=== PATIENT | male | born 1960 | race Caucasian/White ===

== ENCOUNTER 2016-05-06 11:38 | Inpatient (IN) | payer OTHER ==
[~2016-05-06] VITALS: Ht 167.6 cm; Wt 107.0 kg
--- NOTE | 2016-05-06 11:38 | NUR ---
PT TO ROOM 15 VIA STRETCHER BY EMS. OFFICER AT BEDSIDE.
--- NOTE | 2016-05-06 11:59 | NUR ---
PT NOW WITH BLOOD DRAWN FROM IV SITE, AWAITS EDP EVAL. CHEST PAIN IS MINIMAL.
[2016-05-06 12:33] LABS: HEMATOCRIT 42.4 % (39.0-50.0); HEMOGLOBIN 14.7 g/dl (14.0-18.0); IMMATURE GRANULOCYTES 0.7 % (0.0-1.0); MEAN CELL VOLUME 90.2 fL CALC (80.0-100.0); MEAN CORPUSCULAR HGB 31.3 pG CALC (26.0-32.0); MEAN CORPUSCULAR HGB CONC 34.7 g/L CALC (32.0-36.0); NEUT# 11.89 thou/uL (1.82-7.42); RED BLOOD COUNT 4.7 mill/uL (4.70-6.10); RED CELL DISTRI WIDTH 13.2 % (11.5-15.5)
[2016-05-06 12:44] LABS: ALBUMIN 4.2 g/dL (3.2-5.0); ALKALINE PHOSPHATASE 82 u/l (38-126); ANION GAP 18 (6-22 (CALC)); BILIRUBIN, TOTAL 3.1 mg/dL (0.0-1.4); BUN 10 mg/dL (9-20); BUN/CREATININE RATIO 9 (12-20 (CALC)); CALCIUM 8.7 mg/dL (8.4-10.2); CARBON DIOXIDE 21 mmol/l (22-30); CHLORIDE 103 mmol/l (95-108); CREATININE 1.1 mg/dL (0.7-1.3); GFR > 60 ML/MIN (>=60 (CALC)); GFR FOR AFR.AMER. > 60 ML/MIN (>=60 (CALC)); GLUCOSE 130 mg/dL (75-110); POTASSIUM 3.9 mmol/l (3.5-5.1); SGOT/AST 21 u/l (17-59); SGPT/ALT 63 u/l (21-72); SODIUM 138 mmol/l (137-146); TOTAL PROTEIN 7.3 g/dL (6.3-8.2)
[2016-05-06] MEDS ORDERED: ZANTAC 150 PO (13:12)
[2016-05-06] MEDS ORDERED: [UNRECOGNIZED DRUG - OTHER] PO (13:21)
[2016-05-06] MEDS ORDERED: CELEXA20 MG PO (13:22)
[2016-05-06] MEDS ORDERED: BUSPAR5 MG PO (13:22)
[2016-05-06 13:41] LABS: URINE BILIRUBIN - DIPSTICK NEGATIVE (NEGATIVE); URINE BLOOD DIPSTICK MODERATE (NEGATIVE); URINE GLUCOSE - DIPSTICK NEGATIVE (NEGATIVE); URINE KETONE 15 mg/dL (NEGATIVE); URINE PROTEIN - DIPSTICK 100 mg/dL (NEG-TRACE)
[2016-05-06 13:42] LABS: URINE BACTERIA MANY hpf; URINE CLARITY CLOUDY; URINE COLOR DK. YELLOW; URINE EPITHELIAL CELLS MANY EPI/hpf (0-FEW); URINE LEUK ESTERASE MODERATE (NEGATIVE); URINE NITRITE - DIPSTICK POSITIVE (Negative); URINE WBC 20-50 WBC/hpf (0-5)
[2016-05-06 13:47] LABS: INFLUENZA A NONE DETECTED (NONE DETECT); INFLUENZA B NONE DETECTED (NONE DETECT)
--- NOTE | 2016-05-06 14:49 | NUR ---
PT UPDATED ON FINDINGS, NOW TO CT FOR PELVIC EVALUATION.
[2016-05-06] MEDS ORDERED: CIPROFLOXACN500 MG PO (15:52)
--- NOTE | 2016-05-06 17:02 | NUR ---
REPORT TO [facility]. TO ROOM 273 SOON.
--- NOTE | 2016-05-06 17:18 | NUR ---
PT TO FLOOR WITHOUT INCIDENT.
[2016-05-06 17:31] VITALS: BP 140/74
--- NOTE | 2016-05-06 17:49 | NUR ---
REPORT FROM LETICIA IN ED, PT ARRIVED ON UNIT VIS STRETCHER ALERT AND ORIENTED X 3, ORIENTED TO ROOM AND CALL MAI, SETTLED IN BED, DENIES PAIN/DISCOMFORT, CALL MAI IN REACH.
[2016-05-06 19:38] VITALS: BP 108/63
--- NOTE | 2016-05-06 19:44 | NUR ---
RESTING IN BED WATCHING TV, RESPIRATIONS EVEN AND UNLABORED ON RA. DENIES CHEST PAIN. NS INFUSING TO RAC AT 125CC/HR. RIGHT LEG SHACKLED TO BED, MECHANICAL PRESS OPERATOR AT BED SIDE, PO FLUIDS IN REACH. ENCOURAGED TO USE CALL LIGHT FOR ASSISTANCE, WILL CONTINUE TO MONITOR.
[2016-05-07] VITALS (7 sets, daily range): BP systolic 118–150; BP diastolic 69–92
--- NOTE | 2016-05-07 00:22 | NUR ---
PT CALLED STAFF INTO ROOM, C/O CHEST TIGHTNESS, DR. YI AWARE AND NEW ORDER RECEIVED FOR TROPONIN AND EKG. MEDICATED WITH TYLENOL FOR TEMP 100.2. EKG IS UNREMARKABLE, VSS. WILL CONTINUE TO MONITOR.
--- NOTE | 2016-05-07 04:30 | NUR ---
RESTING IN SEMIFOWLERS WITH EYES CLOSED, RESPIRATIONS EVEN AND UNLABORED, RESPONDS EASILY TO VERBAL COMMAND, DENIES ABDOMINAL PAIN.
[2016-05-07 05:51] LABS: HEMOGLOBIN 12.8 g/dl (14.0-18.0); IMMATURE GRANULOCYTES 0.8 % (0.0-1.0); MEAN CELL VOLUME 93.1 fL CALC (80.0-100.0); MEAN CORPUSCULAR HGB 31.4 pG CALC (26.0-32.0); MEAN CORPUSCULAR HGB CONC 33.7 g/L CALC (32.0-36.0); NEUT# 8.23 thou/uL (1.82-7.42); RED BLOOD COUNT 4.08 mill/uL (4.70-6.10); RED CELL DISTRI WIDTH 13.3 % (11.5-15.5)
[2016-05-07 06:06] LABS: ANION GAP 13 (6-22 (CALC)); BUN 11 mg/dL (9-20); BUN/CREATININE RATIO 12 (12-20 (CALC)); CALCIUM 8.1 mg/dL (8.4-10.2); CARBON DIOXIDE 23 mmol/l (22-30); CHLORIDE 107 mmol/l (95-108); GFR > 60 ML/MIN (>=60 (CALC)); GFR FOR AFR.AMER. > 60 ML/MIN (>=60 (CALC)); GLUCOSE 95 mg/dL (75-110); SODIUM 139 mmol/l (137-146)
--- NOTE | 2016-05-07 07:00 | NUR ---
SHIFT CHANGE REPORT FROM GAURANG CHINCHILLA AWAKE ALERT AND ORIENTED AMBULATING TO BR AT THIS TIME, IVF INFUSING, LEGS IN SHACKELS, GUARD AT BEDSIDE, CALL MAI IN REACH.
--- NOTE | 2016-05-07 12:00 | NUR ---
SITTING UP IN BED HAVING MEAL, ALL NEEDS MET/ADDRESSED, GUARD AT BEDSIDE, CALL MAI IN REACH.
--- NOTE | 2016-05-07 15:30 | NUR ---
WEB CONTENT MANAGER REPORTS TEMP OF 101, PT RESTING IN BED, INFORMED OF TREATMENT PLAN AND STATES UNDERSTANDING, TYLENOL GIVEN, WILL CONTINUE TO MONITOR, CALL MAI IN REACH, GUARD AT BEDSIDE.
--- NOTE | 2016-05-07 19:10 | NUR ---
REPORT RECEIVED FROM EMMIE SALVADOR; PT.UPRIGHT IN BED WATCHING TV AND GUARD AT BEDSIDE, PT.SHACKELED TO BED @R.ANKLE; PT.REQUESTED AND PROVIDED COFFEE AND DENIES NEEDING ANY FURTHER ASSISTANCE; CALL LIGHT W/IN REACH
--- NOTE | 2016-05-07 21:00 | NUR ---
PT.ASSESSED AND MEDICATED ORDERS PROVIDE; PT.URINAL EMPTIED OF YELLOW CLOUDY URINE W/SEDIMENT; PT.C/O MILD HEADACHE, BUT FEELS THE CAFFEINE IN COFFEE WILL HELP; DENIES ANY FURTHER NEEDS AT THIS TIME; CALL LIGHT W/IN REACH AND GUARD AT BEDSIDE
--- NOTE | 2016-05-08 02:27 | NUR ---
PT.SLEEPING AT THIS TIME; GUARD AT BEDSIDE
[2016-05-08 03:15] VITALS: BP 120/70
[2016-05-08 04:50] VITALS: BP 162/97
[2016-05-08 05:11] LABS: IMMATURE GRANULOCYTES 0.6 % (0.0-1.0); MEAN CORPUSCULAR HGB 31.6 pG CALC (26.0-32.0); MEAN CORPUSCULAR HGB CONC 35.1 g/L CALC (32.0-36.0); NEUT# 8.9 thou/uL (1.82-7.42); RED BLOOD COUNT 4.11 mill/uL (4.70-6.10)
[2016-05-08 05:16] LABS: ANION GAP 14 (6-22 (CALC)); BUN 9 mg/dL (9-20); BUN/CREATININE RATIO 10 (12-20 (CALC)); CARBON DIOXIDE 22 mmol/l (22-30); CHLORIDE 102 mmol/l (95-108); CREATININE 0.8 mg/dL (0.7-1.3); GFR > 60 ML/MIN (>=60 (CALC)); GFR FOR AFR.AMER. > 60 ML/MIN (>=60 (CALC)); GLUCOSE 104 mg/dL (75-110); POTASSIUM 3.9 mmol/l (3.5-5.1); SODIUM 134 mmol/l (137-146)
--- NOTE | 2016-05-08 07:00 | NUR ---
SHIFT CHANGE REPORT FROM GAURANG VARGAS AWAKE ALERT AND ORIENTED LYING IN BED, C/O HEADACHE AT THIS TIME, IVF INFUSING, TELE MONITOR IN PLACE, CALL MAI IN REACH, GUARD AT BEDSIDE.
[2016-05-08 08:45] VITALS: BP 133/80
--- NOTE | 2016-05-08 13:23 | NUR ---
Consult for Med Rec Education Met with pt for pt medication education. Discussed pt's meds and answered questions regaurding purpose of meds and dosing. Pt seemed to understand all information given, and he had no further questions.
[2016-05-08 13:30] VITALS: BP 137/79
[2016-05-08] MEDS ORDERED: VANTIN200 M1 PO (13:57)
--- NOTE | 2016-05-08 15:33 | NUR ---
Discharge instructions given. Patient verbalizes understanding of same. Discharged in stable condition via [facility] with [facility]. All belongings sent with pt.
== END 2016-05-08 15:40 | DRG 872 ==
LOC: ENPENDDIS → ED 11:38 → ED-I 16:10 → ED 16:39 → MS2 16:40
PROVIDERS: Emergency Medicine; ADMIT Internal Medicine; ATTEND Internal Medicine
DX: A41.9 Sepsis, unspecified organism (principal); E87.2 Acidosis; N39.0 Urinary tract infection, site not specified; F32.9 Major depressive disorder, single episode, unspecified; F41.9 Anxiety disorder, unspecified; R07.9 Chest pain, unspecified; B96.20 Unspecified Escherichia coli [E. coli] as the cause of diseases classified elsewhere; Z87.891 Personal history of nicotine dependence
CPT/HCPCS: J0692; J1650; Q9967